=== PATIENT | male | born 1975 | race Caucasian/White ===

== ENCOUNTER 2017-12-31 20:05 | Emergency (ER) | payer SELFPAY ==
[2017-12-31 20:08] VITALS: BP 124/81; PULSE 105; RESP 22; TEMP 36.6; O2SAT 100; BMI 28.7
--- NOTE | 2017-12-31 20:30 | DI.CT.S_ITS ---
PROCEDURE: CT HEAD/BRAIN WO CON INDICATIONS: s/p syncope vs seizure w/ head trauma TECHNIQUE: Noncontrast 4.5 mm thick angled axial sections acquired from the foramen magnum to the vertex, with coronal and sagittal reformats. For radiation dose reduction, the following was used: automated exposure control, adjustment of mA and/or kV according to patient size. COMPARISON: None. FINDINGS: Image quality: Excellent. CSF spaces: Basal cisterns are patent. No extra-axial fluid collections. Ventricles are normal in size and shape. Brain: No midline shift. No intracranial masses or hemorrhage. Tobar-white matter interface is normal. 9 mm hypodensity seen in the region of left basal ganglia presumably chronic lacunar infarct, technically nonspecific Skull and face: Calvarium and visualized facial bones are intact, without suspicious lesions. Sinuses: Visualized sinuses and mastoids are clear. IMPRESSION: No acute intracranial process. Presumed chronic lacunar infarct involving the left basal ganglia. Dictated by: Swapnil Carlson M.D. on 12/31/2017 at 21:30 Approved by: Swapnil Carlson M.D. on 12/31/2017 at 21:32
--- NOTE | 2017-12-31 20:30 | DI.RAD.S_ITS ---
PROCEDURE: XR CHEST 1V INDICATIONS: syncope TECHNIQUE: One view of the chest was acquired. COMPARISON: None. FINDINGS: Surgical changes and devices: None. Lungs and pleura: No pleural effusions or pneumothorax. Lungs are clear. Low lung volumes and scattered atelectasis Mediastinum: Mediastinal contours appear normal. Heart size is normal. Bones and chest wall: No suspicious bony lesions. Overlying soft tissues appear unremarkable. IMPRESSION: Low lung volumes and scattered atelectasis. Dictated by: Swapnil Carlson M.D. on 12/31/2017 at 21:30 Approved by: Swapnil Carlson M.D. on 12/31/2017 at 21:30
[2017-12-31] MEDS: DIPHTH,PERTUSS(ACELL),TET VAC 0.5 ML SYRINGE IM (20:54)
[2017-12-31 21:10] LABS: Add Manual Diff / Slide Review NO; Basophils Percent Auto 0.9 % (0-2); Eosinophils Percent Auto 3.2 % (2-4); Hematocrit 37.4 % (41-53); Hemoglobin 12.5 g/dL (13.5-17.5); Lymphocytes Percent Auto 25.6 % (25-40); Mean Corpuscular HGB Conc 33.6 % (30-36); Mean Corpuscular Hemoglobin 29.1 PG (26-34); Mean Corpuscular Volume 86.6 fL (80-100); Monocytes Percent Auto 8.7 % (3-14); Neutrophils Absolute Auto 3700 /uL (3000-5900); Neutrophils Percent Auto 61.6 % (50-75); Platelet Count 166 X10^3/uL (150-400); Red Blood Cell Count 4.31 X10^6/uL (4.5-5.9); Red Cell Distribution Width 12.7 % (11.6-14.8)
[2017-12-31 21:21] LABS: BUN Creatinine Ratio 24.4 (6-22); Blood Urea Nitrogen 22 mg/dL (9-20); Calcium 9.5 mg/dL (8.4-10.2); Carbon Dioxide 32 mmol/L (22-32); Chloride 97 mmol/L (98-107); Estimated Glomerular Filt Rate > 60.0 mL/min (>60); Glucose 115 mg/dL (70-100); HEMOLYSIS < 15 (0-50); Potassium 3.8 mmol/L (3.4-5.1); Sodium 140 mmol/L (137-145)
[2017-12-31 22:14] VITALS: BP 133/86; PULSE 80; RESP 20; O2SAT 100
--- NOTE | 2017-12-31 22:17 | ED_ITS ---
HPI - Medical Clearance General Chief complaint: Medical Clearance Stated complaint: [facility] History of Present Illness HPI Narrative: HPI 42-year-old male with a reported seizure history (unmedicated) and ongoing IVDU (heroin) presents for medical clearance after a brief LOC with fall, head straight, and right knee injury while the patient was in a police holding cell. Patient reports that he has no recollection of events but awoke with head pain and right knee pain after apparently falling well and holding cell. Patient reports similar prior episodes. Patient has had minimal medical evaluation these episodes but believes he is had seizures and is not taking medications. Patient denies chest pain, fevers, chills. * Denies chest pain, shortness of breath, double vision, neck pain, vertigo, headache, arm pain, arm paresthesias, arm numbness, or focal weakness or sensory at change now or the time of their event. * Denies recent chiropractic manipulation of their neck, neck trauma or strains. M/S/F/SocHx notable for: please see HPI; remainder reviewed with patient and in chart. ROS: Negative constitutional, eye, cardiovascular, pulmonary, GI, , MSK, skin , neurologic, psychiatric, endocrine unless noted in the HPI. Exam Gen: Pleasant, non-toxic appearing, resting comfortably. HEENT: approximately 3 cm diameter area of superficial abrasion posterior occiput, otherwise NC, AT, PEERL, EOMI. Resp: Clear to auscultation bilaterally with a normal work of breathing and no accessory muscle usage. Card: Regular rate and rhythm with no murmurs rubs or gallops, extremities are warm and well perfused, no JVD. GI: Nontender to palpation throughout all quadrants, nondistended : Deferred MSK: no visible deformities, strength and tone within normal limits, no tenderness to palpation or palpable abnormalities of the appendicular skeleton, shoulder girdle, chest, and pelvis with the exception of a 2.5 cm long irregularly shaped curvilinear full-thickness laceration inferior and lateral to the right patella. Right knee with a negative Fartun and posterior drawer, no joint line tenderness palpation. 2+ distal DP pulse. Remainder of extremities warm and well perfused with sensation grossly intact to touch on the extremities. Skin: Normal color with no visible lesions. Neuro: Gen AO x 3, no facial asymmetry, no gaze preference, no slurring of speech. Pupils equal and reactive, EOMI, no facial asymmetry, no nystagmus, phonation intact, SCM 5/5 bilaterally. Cerebellar: bilateral upper extremities without dysmetria. Psych: Mood and affect appropriate. Labs / Imaging (pertinent): WBC 6.0, HB 12.5, sodium 140, potassium 3.8 CT head: no acute intracranial disease process. Presume chronic lacunar infarcts involving the left basal ganglia. CXR: low lung volumes and scattered atelectasis. EKG: SR at [address]-segment elevations or depressions, T-wave inversions or new LBBB. RI interval 206 msec, QTc 368 msec, no delta waves, epsilon waves, coved or saddle ST-segment changes in leads V1-3, preseptal or inferior lead Q-waves, biphasic P-waves, or T-wave inversions; no LVH. MDM Previous chart, nursing note, and vitals reviewed. A: 42-year-old male with a reported seizure history (unmedicated) and ongoing IVDU (heroin) presents for medical clearance after a brief LOC with fall, head straight, and right knee injury while the patient was in a police holding cell. DDx and evaluation: * Anemia - Hemoglobin clinically within normal limits. * Cardiac - EKG and history without evidence of AV-block, WPW syndrome, Brugada syndrome, HCM, Long or Short QT-syndrome, or arrhythmogenic RV dysplasia. Heart sounds WNL on exam, no evidence of valvular abnormalities by history or auscultation. History not consistent with ACS. * Obstructive - Doubt PE, tamponade, or pulmonary hypertension based upon lack of shortness of breath, chest pain, or historical risk factors on history and the absence of hypoxemia, tachycardia, hypotension, or JVD on exam. * Vascular - As there are no identifiable risk factors on history (injury risk factors, vertiginous symptoms, diplopia, vision changes, TIA risk factors or prior similar events) further evaluation of a possible vertebrobasilar insufficiency. Furthermore, as the patient denies neck pain, recent neck trauma , and there is no evidence of a partial Hany's syndrome, a carotid or vertebral dissection is felt to be unlikely and imaging is not indicated. Similarly, the absence of focal arm symptoms and symmetric perfusion of the upper extremities effectively excludes emergent evaluation of any possible subclavian steal syndrome. Lastly, given the absence of chest pain aortic dissection further evaluation of any possible dissection is not warranted. * Electrolyte - Electrolytes clinically within normal limits. * Hypotension (hypovolemia vs vasovagal vs autonomic instability) - SBP clinically within normal limits, no symptomatic changes with orthostatic maneuvers. 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 * AAA - patient without any abdominal, groin, back or flank pain on history or exam, as such no further evaluation of this possible etiology is currently indicated. * SEIZURE - GIVEN THE PATIENT'S HISTORY OF RECURRENT SIMILAR EPISODES (ONE WITH A PERIOD OF POST ICTAL PARALYSIS WHICH RESOLVED) AND PRIOR TENTATIVE DIAGNOSIS OF SEIZURES MEDICATION NONCOMPLIANCE WELL TODAY'S HISTORY OF SUDDEN LOC WITH AMNESIA STRONGLY SUSPECT SEIZURE. PATIENT GIVEN ORAL KEPPRA LOAD, DISCHARGE WITH RX FOR KEPPRA 500 MG B.I.D AND INSTRUCTIONS TO FOLLOW UP WITH NEUROLOGY. ED Course: laceration repair as below. Tdap booster given. Disposition: discharged with neurology follow-up recommended. Keppra prescription given. Impression: syncope, laceration, and suspected seizure. (please reference below for remainder of encounter information) Laceration Repair Verbal consent obtained. Wound cleaned with 500 ML sterile saline. Local infiltration of 6 mL of 2% lidocaine with epinephrine was used for anesthesia. Minimal debriding of tissue required. No foreign bodies removed, entirety of wound well visualized with no remaining foreign bodies appreciated. Using a clean procedure the wound was repaired with 3 3-0 nylon vertical mattress and 2-2 nylon simple interrupted sutures. No undermining required, patient tolerated the procedure well without apparent complications. Allergies Allergy/AdvReac Type Severity Reaction Status Date / Time No Known Drug Allergies Allergy Verified 12/31/17 20:36 Exam Initial Vital Signs Initial Vital Signs: Vital Signs Temperature 97.8 F 12/31/17 20:08 Pulse Rate 105 H 12/31/17 20:08 Respiratory Rate 22 12/31/17 20:08 Blood Pressure 124/81 H 12/31/17 20:08 Pulse Oximetry 100 12/31/17 20:08 Course Last Vital Signs Temp 97.8 F 12/31/17 20:08 Pulse 80 12/31/17 22:14 Resp 20 12/31/17 22:14 BP 133/86 H 12/31/17 22:14 Pulse Ox 100 12/31/17 22:14 MDM - Medical Clearance Lab Data Result diagrams: 12/31/17 21:00 12/31/17 21:00 Lab Results 12/31/17 12/31/17 Range/Units 21:00 21:00 WBC 6.0 (4.5-11.0) X10^3/uL RBC 4.31 L (4.5-5.9) X10^6/uL Hgb 12.5 L (13.5-17.5) g/dL Hct 37.4 L (41-53) % MCV 86.6 (80-100) fL MCH 29.1 (26-34) PG MCHC 33.6 (30-36) % RDW 12.7 (11.6-14.8) % Plt Count 166 (150-400) X10^3/uL Neut % (Auto) 61.6 (50-75) % Lymph % (Auto) 25.6 (25-40) % Anson % (Auto) 8.7 (3-14) % Eos % (Auto) 3.2 (2-4) % Baso % (Auto) 0.9 (0-2) % Neut # (Auto) 3700 (9237-8461) /uL Sodium 140 (137-145) mmol/L Potassium 3.8 (3.4-5.1) mmol/L Chloride 97 L (98-107) mmol/L Carbon Dioxide 32 (22-32) mmol/L BUN 22 H (9-20) mg/dL Creatinine 0.90 (0.66-1.25) mg/dL Estimated GFR > 60.0 (>60) mL/min BUN/Creatinine Ratio 24.4 H (6-22) Glucose 115 H (70-100) mg/dL Calcium 9.5 (8.4-10.2) mg/dL
[2017-12-31] MEDS: levETIRAcetam 250 MG TABLET 1500 MG PO (22:57)
== END 2017-12-31 23:07 | disposition home or self-care (01) ==
PROVIDERS: Emergency Provider Emergency Medicine
DX: S81.011A Laceration without foreign body, right knee, initial encounter (principal); R55 Syncope and collapse; W19.XXXA Unspecified fall, initial encounter
CPT/HCPCS: 12001; 36415; 70450; 71045; 80048; 85025; 90471; 90715; 93005; 99283; 99285; 99291

== ENCOUNTER 2021-11-02 21:28 | Inpatient (IN) | payer SELFPAY ==
[2021-11-02] VITALS (7 sets, daily range): BP systolic 115–138; BP diastolic 58–76; PULSE 115–127; RESP 22; TEMP 37; O2SAT 96–98; BMI 31.5
--- NOTE | 2021-11-02 21:47 | ED_ITS ---
HPI - General Adult General Chief complaint: Skin/Abscess/Foreign Body Stated complaint: left lower leg red, swollen, painful Time Seen by Provider: 11/02/21 21:43 Source: patient Mode of arrival: Ambulatory Limitations: no limitations History of Present Illness HPI narrative: 46-year-old male who is here for evaluation of red swollen painful left lower extremity. His symptoms have been perc is low worsening over the past couple days. He states that a couple days ago he did hit his knee on a tree while riding on a riding lawn lower but he is unsure if that is what caused his symptoms but since then he has had progressive worsening pain and swelling and redness to the leg. No documented fevers. Has not tried anything for the symptoms prior to arrival. Has never had an abscess in the past that is needed drained. He does admit to IV drug use but denies injecting himself in his leg. Related Data Previous Rx's Medication Instructions Recorded levetiracetam 500 mg tablet 500 mg PO Q12H #30 tab 12/31/17 (K[facility]athira) Allergies Allergy/AdvReac Type Severity Reaction Status Date / Time No Known Drug Allergies Allergy Verified 12/31/17 20:36 Review of Systems Constitutional Constitutional: Denies fever(s) Musculoskeletal Musculoskeletal: Reports system reviewed and no additional complaints, except as documented and Reports as per HPI Integumentary/Breasts Skin/Breast: Reports system reviewed and no additional complaints, except as documented and Reports as per HPI Neurologic Neurologic: Reports system reviewed and no additional complaints, except as documented Hematologic/Lymphatic On Anticoagulants: No Patient History Medical History Atypical chest pain CVA (cerebral vascular accident) Elevated liver enzymes IV drug abuse Social History household members: friend(s) Smoking Status: Current every day smoker Exam Initial Vital Signs Initial Vital Signs: Vital Signs Temperature 98.6 F 11/02/21 21:46 Pulse Rate 125 H 11/02/21 21:46 Respiratory Rate 22 11/02/21 21:46 Blood Pressure 134/73 11/02/21 21:46 Pulse Oximetry 98 11/02/21 21:46 Const General: comfortable and No ill appearing HENMT Head: normal to inspection and normocephalic Resp Effort & Inspection: normal respiratory effort Auscultation: clear to auscultation bilaterally Cardio Rate: regular rate Rhythm: regular rhythm Pulses: dorsalis pedis present on the left Skin Other: Redness and warmth to left lower extremity from his ankle to proximal to the knee. No blisters noted. There is an effusion of the knee but no fluctuance consistent with abscess. Neuro Sensory Exam: no sensory deficits noted Extrem Other: His left foot left ankle unremarkable. Does have swelling to his left lower extremity from his ankle to above his left knee. Patient does have quite a bit of discomfort with flexion or extension of his left knee. He is holding it in approximately 20? of flexion. He does have an effusion of the knee. Is exquisitely tender just to superficial palpation of the area. His left hip is unremarkable. Psych Appearance: grossly normal Course Orders Ordered: ED Orders 11/02/21 21:48 XR knee LT 1to2V Stat 11/02/21 21:50 US periph venous low extrem lt Stat 11/02/21 22:39 COVID19 -Nasal RAPID/Pre-Proc Stat 11/02/21 23:10 Blood Culture Stat C-Reactive Protein Quant Stat Complete Blood Count AUTO DIFF Stat Comprehensive Metabolic Panel Stat Erythrocyte Sedimentation Rate Stat Lactate (Lactic Acid) Stat Lipase Stat Procalcitonin Stat 11/03/21 01:29 Consult to Orthopedic Surgery Stat 11/03/21 01:50 Urinalysis and Microscopic Stat Urine Culture Stat Urine Drug Screen, Rapid Stat Acetaminophen (Acetaminophen 325 Mg Tablet) 650 mg PO Q6HR PRN PRN Reason: Fever/Mild Pain (1-3) Enoxaparin Sodium (Enoxaparin 40 Mg/0.4 Ml Syringe) 40 mg SUBCUT DAILY [facility] Sodium Chloride (Normal Saline 0.9%) 1,000 mls @ 125 mls/hr IV CONT MADHU Last Admin: 11/02/21 22:27 Dose: 125 mls/hr Documented by: RADHA Ceftriaxone Sodium 1,000 mg/ (Sodium Chloride) 100 mls @ 200 mls/hr IV Q24H [facility] Ibuprofen (Ibuprofen 600 Mg Tablet) 600 mg PO Q6HR PRN PRN Reason: Fever/Mild Pain (1-3) Ketorolac Tromethamine (Ketorolac 30 Mg/Ml Vial) 15 mg IV Q6H PRN PRN Reason: Pain, Moderate (4-6) Stop: 11/06/21 02:44 Levetiracetam (Levetiracetam 250 Mg Tablet) 500 mg PO BID MADHU Morphine Sulfate (Morphine 2 Mg/Ml Inj) 2 mg IV Q3H PRN PRN Reason: Breakthrough pain only (8-10) Naloxone HCl (Naloxone 0.4 Mg/Ml Vial) 0.2 mg IV Q2MIN PRN PRN Reason: Opiate Reversal Ondansetron HCl (Ondansetron 4 Mg/2 Ml Inj) 4 mg IV Q6HR PRN PRN Reason: Nausea And Vomiting Oxycodone HCl (Oxycodone Ir 5 Mg Tablet) 5 mg PO Q4HR PRN PRN Reason: Pain, Severe (7-10) Tramadol HCl (Tramadol 50 Mg Tablet) 50 mg PO Q4H PRN PRN Reason: Pain, Moderate (4-6) Discontinued Medications Diphtheria/Tetanus/Acell Pertussis (Tet,Diph,Pertuss(Acell),Vac/Pf 0.5 Ml Syringe) 0.5 ml IM .ONCE ONE Stop: 11/02/21 23:00 Last Admin: 11/02/21 23:11 Dose: 0.5 ml Documented by: RADHA Ceftriaxone Sodium 1,000 mg/ (Sodium Chloride) 100 mls @ 200 mls/hr IV NOW ONE Stop: 11/02/21 21:49 Last Infusion: 11/02/21 23:59 Dose: 0 mls/hr Documented by: Admin: 11/02/21 23:23 Dose: 200 mls/hr Documented by: RADHA Vancomycin HCl (Vancomycin) 1,000 mg in 200 mls @ 200 mls/hr IV NOW ONE Stop: 11/02/21 22:47 Last Infusion: 11/03/21 01:24 Dose: 0 mls/hr Documented by: Admin: 11/02/21 23:59 Dose: 200 mls/hr Documented by: TYRONE Vital Signs Vital signs: Vital Signs - 8 hr 11/02/21 21:46 11/02/21 21:53 11/02/21 22:00 Temperature 98.6 F Pulse Rate 125 H 125 H 127 H Respiratory Rate 22 Blood Pressure 134/73 Pulse Oximetry 98 98 96 11/02/21 22:30 11/02/21 22:57 11/02/21 23:00 Temperature Pulse Rate 115 H 118 H 120 H Respiratory Rate Blood Pressure 138/76 131/76 Pulse Oximetry 97 98 97 11/02/21 23:30 11/03/21 00:00 11/03/21 00:01 Temperature Pulse Rate 116 H Respiratory Rate Blood Pressure 115/58 L 105/69 Pulse Oximetry 96 98 11/03/21 00:30 Temperature Pulse Rate 117 H Respiratory Rate Blood Pressure 104/55 L Pulse Oximetry 96 Medical Decision Making Lab Data Lab results reviewed: Yes I reviewed the patient's lab results. Result diagrams: 11/02/21 23:10 11/02/21 23:10 Labs: Lab Results 11/02/21 11/02/21 11/02/21 Range/Units 22:39 23:10 23:10 WBC 12.8 H (4.5-11.0) X10^3/uL RBC 4.44 L (4.5-5.9) X10^6/uL Hgb 12.9 L (13.5-17.5) g/dL Hct 37.6 L (41-53) % MCV 84.6 (80-100) fL MCH 29.0 (26-34) PG MCHC 34.3 (30-36) % RDW 13.3 (11.6-14.8) % Plt Count 154 (150-400) X10^3/uL Neut % (Auto) 84.9 H (50-75) % Lymph % (Auto) 7.7 L (25-40) % [place] % (Auto) 5.0 (3-14) % Eos % (Auto) 2.2 (2-4) % Baso % (Auto) 0.2 (0-2) % Neut # (Auto) 49739 H (6280-0793) /uL Lymph # (Auto) 1000 L (7067-4013) /uL [place] # (Auto) 600 (0-900) /uL Eos # (Auto) 300 (0-450) /uL Baso # (Auto) 0 (0-100) /uL ESR (0-15) MM/HR Sodium 130 L (137-145) mmol/L Potassium 3.6 (3.4-5.1) mmol/L Chloride 90 L (98-107) mmol/L Carbon Dioxide 31 (22-32) mmol/L BUN 14 (9-20) mg/dL Creatinine 1.16 (0.66-1.25) mg/dL Estimated GFR > 60 (>60) mL/min BUN/Creatinine Ratio 12.1 (6-22) Glucose 153 H (70-100) mg/dL Lactate (0.7-2.1) mmol/L Calcium 8.5 (8.4-10.2) mg/dL Total Bilirubin 1.7 H (0.2-1.3) mg/dL AST 46 (17-59) IU/L ALT 91 H (<50) IU/L Alkaline Phosphatase 120 (38-126) U/L C-Reactive Protein 31.2 H (<1.0) mg/dL Total Protein 7.9 (6.3-8.2) g/dL Albumin 3.8 (3.5-5.0) g/dL Globulin 4.1 (1.7-4.1) g/dL Albumin/Globulin Ratio 0.9 L (1.0-2.8) Lipase 23 (23-300) U/L Procalcitonin 2.25 H (<0.5) ng/mL Urine Color Urine Appearance Urine pH (4.5-8.0) Ur Specific [place] (1.000-1.035) Urine Protein (Negative) Urine Glucose (UA) (Negative) g/dL Urine Ketones (NEGATIVE) Urine Occult Blood (Negative) Urine Nitrate (Negative) Urine Bilirubin (NEGATIVE) Urine Urobilinogen (0.2) E.U./dL Ur Leukocyte Esterase (NEGATIVE) Urine RBC (0-5/HPF) Urine WBC (0-5/HPF) Urine Bacteria (None) Ur Culture Indicated? U Opiates 300ng/mL cut (Negative) Ur Oxycodone Screen (Negative) Urine Methadone Screen (Negative) Ur Barbiturates Screen (Negative) U Tricyclic Antidepress (Negative) Ur Phencyclidine Scrn (Negative) Ur Amphetamines Screen (Negative) U Methamphetamines Scrn (Negative) Ur MDMA Scrn (Ecstasy) (Negative) U Benzodiazepines Scrn (Negative) Urine Cocaine Screen (Negative) U Marijuana (THC) Screen (Negative) SARS-CoV-2 (PCR) Negative (Negative) 11/02/21 11/02/21 11/03/21 Range/Units 23:10 23:10 01:50 WBC (4.5-11.0) X10^3/uL RBC (4.5-5.9) X10^6/uL Hgb (13.5-17.5) g/dL Hct (41-53) % MCV (80-100) fL MCH (26-34) PG MCHC (30-36) % RDW (11.6-14.8) % Plt Count (150-400) X10^3/uL Neut % (Auto) (50-75) % Lymph % (Auto) (25-40) % [place] % (Auto) (3-14) % Eos % (Auto) (2-4) % Baso % (Auto) (0-2) % Neut # (Auto) (1098-0483) /uL Lymph # (Auto) (2832-5830) /uL [place] # (Auto) (0-900) /uL Eos # (Auto) (0-450) /uL Baso # (Auto) (0-100) /uL ESR 49 H (0-15) MM/HR Sodium (137-145) mmol/L Potassium (3.4-5.1) mmol/L Chloride (98-107) mmol/L Carbon Dioxide (22-32) mmol/L BUN (9-20) mg/dL Creatinine (0.66-1.25) mg/dL Estimated GFR (>60) mL/min BUN/Creatinine Ratio (6-22) Glucose (70-100) mg/dL Lactate 1.9 (0.7-2.1) mmol/L Calcium (8.4-10.2) mg/dL Total Bilirubin (0.2-1.3) mg/dL AST (17-59) IU/L ALT (<50) IU/L Alkaline Phosphatase (38-126) U/L C-Reactive Protein (<1.0) mg/dL Total Protein (6.3-8.2) g/dL Albumin (3.5-5.0) g/dL Globulin (1.7-4.1) g/dL Albumin/Globulin Ratio (1.0-2.8) Lipase (23-300) U/L Procalcitonin (<0.5) ng/mL Urine Color Urine Appearance Urine pH (4.5-8.0) Ur Specific [place] (1.000-1.035) Urine Protein (Negative) Urine Glucose (UA) (Negative) g/dL Urine Ketones (NEGATIVE) Urine Occult Blood (Negative) Urine Nitrate (Negative) Urine Bilirubin (NEGATIVE) Urine Urobilinogen (0.2) E.U./dL Ur Leukocyte Esterase (NEGATIVE) Urine RBC (0-5/HPF) Urine WBC (0-5/HPF) Urine Bacteria (None) Ur Culture Indicated? U Opiates 300ng/mL cut Positive H (Negative) Ur Oxycodone Screen Negative (Negative) Urine Methadone Screen Negative (Negative) Ur Barbiturates Screen Negative (Negative) U Tricyclic Antidepress Negative (Negative) Ur Phencyclidine Scrn Negative (Negative) Ur Amphetamines Screen Positive H (Negative) U Methamphetamines Scrn Positive H (Negative) Ur MDMA Scrn (Ecstasy) Negative (Negative) U Benzodiazepines Scrn Negative (Negative) Urine Cocaine Screen Negative (Negative) U Marijuana (THC) Screen Negative (Negative) SARS-CoV-2 (PCR) (Negative) 11/03/21 Range/Units 01:50 WBC (4.5-11.0) X10^3/uL RBC (4.5-5.9) X10^6/uL Hgb (13.5-17.5) g/dL Hct (41-53) % MCV (80-100) fL MCH (26-34) PG MCHC (30-36) % RDW (11.6-14.8) % Plt Count (150-400) X10^3/uL Neut % (Auto) (50-75) % Lymph % (Auto) (25-40) % [place] % (Auto) (3-14) % Eos % (Auto) (2-4) % Baso % (Auto) (0-2) % Neut # (Auto) (7286-5299) /uL Lymph # (Auto) (3611-2959) /uL [place] # (Auto) (0-900) /uL Eos # (Auto) (0-450) /uL Baso # (Auto) (0-100) /uL ESR (0-15) MM/HR Sodium (137-145) mmol/L Potassium (3.4-5.1) mmol/L Chloride (98-107) mmol/L Carbon Dioxide (22-32) mmol/L BUN (9-20) mg/dL Creatinine (0.66-1.25) mg/dL Estimated GFR (>60) mL/min BUN/Creatinine Ratio (6-22) Glucose (70-100) mg/dL Lactate (0.7-2.1) mmol/L Calcium (8.4-10.2) mg/dL Total Bilirubin (0.2-1.3) mg/dL AST (17-59) IU/L ALT (<50) IU/L Alkaline Phosphatase (38-126) U/L C-Reactive Protein (<1.0) mg/dL Total Protein (6.3-8.2) g/dL Albumin (3.5-5.0) g/dL Globulin (1.7-4.1) g/dL Albumin/Globulin Ratio (1.0-2.8) Lipase (23-300) U/L Procalcitonin (<0.5) ng/mL Urine Color Yellow Urine Appearance Clear Urine pH 6.5 (4.5-8.0) Ur Specific [place] 1.015 (1.000-1.035) Urine Protein 2+ H (Negative) Urine Glucose (UA) Trace H (Negative) g/dL Urine Ketones Negative (NEGATIVE) Urine Occult Blood 1+ H (Negative) Urine Nitrate Negative (Negative) Urine Bilirubin Negative (NEGATIVE) Urine Urobilinogen 1.0 (0.2) E.U./dL Ur Leukocyte Esterase Negative (NEGATIVE) Urine RBC None seen (0-5/HPF) Urine WBC None seen (0-5/HPF) Urine Bacteria None seen (None) Ur Culture Indicated? Culture not indicate U Opiates 300ng/mL cut (Negative) Ur Oxycodone Screen (Negative) Urine Methadone Screen (Negative) Ur Barbiturates Screen (Negative) U Tricyclic Antidepress (Negative) Ur Phencyclidine Scrn (Negative) Ur Amphetamines Screen (Negative) U Methamphetamines Scrn (Negative) Ur MDMA Scrn (Ecstasy) (Negative) U Benzodiazepines Scrn (Negative) Urine Cocaine Screen (Negative) U Marijuana (THC) Screen (Negative) SARS-CoV-2 (PCR) (Negative) Imaging Data Extremity x-ray #1: Radiologist's Impression: [address] [address] XRay Report Signed Patient: Ezequiel Estevez MR#: [id number] : 1975 Acct:[id number] Age/Sex: 46 / M Date of Service: 11/02/21 Loc: ED Accession Number: [id number] ?? Procedure: XR knee LT 1to2V Ordering Provider: Lj Gudino D.O. PROCEDURE:? XR KNEE LT 1TO2V ? INDICATIONS:? pain and swelling ? TECHNIQUE:? 2 views of the knee were acquired.? ? COMPARISON:? None. ? FINDINGS:? ? Bones:? No fractures or dislocations.? No suspicious bony lesions.? ? Soft tissues:? No joint effusion.? There is prepatellar soft tissue swelling.? No suspicious soft tissue calcifications.? ? ? IMPRESSION:? ? 1. No fracture or dislocation. ? 2. Prepatellar soft tissue swelling. ? ? Dictated by: Efren Barber M.D. on 11/03/2021 at 0:11 ? ? Approved by: Efren Barber M.D. on 11/03/2021 at 0:11?? US - DVT: Radiologist's Impression: [place] [address] Ultrasound Report Signed Patient: Ezequiel Estevez MR#: [id number] : 1975 Acct:[id number] Age/Sex: 46 / M Date of Service: 11/02/21 Loc: ED Accession Number: [id number] ?? Procedure: US periph venous low extrem lt Ordering Provider: Lj Gudino D.O. PROCEDURE:? US PERIPH VENOUS LOW EXTREM LT ? INDICATIONS:? LT LEG PAIN AND SWELLING ? TECHNIQUE:? Real-time imaging, as well as color and pulse Doppler interrogation, were performed of the lower extremity deep veins from the inguinal ligament to the popliteal fossa.? ? COMPARISON:? None. ? FINDINGS:? The common femoral, femoral and popliteal veins are normally compressible, and free of intraluminal thrombus.? Color and pulse Doppler demonstrate normal phasic intraluminal flow.? There is normal augmentation response to distal compression maneuver. ? ? There are enlarged lymph nodes within the left inguinal region, with the largest measuring up to 2.9 x 2.3 x 2.5 cm. ? IMPRESSION:? ? 1. No evidence of deep venous thrombosis in the left lower extremity. ? Enlarged left inguinal lymph nodes are nonspecific.? The findings may be reactive but a neoplastic etiology cannot be excluded.? ? Dictated by: Efren Barber M.D. on 11/03/2021 at 0:13 ? ? Approved by: Efren Barber M.D. on 11/03/2021 at 0:14?? [facility] Narrative Medical decision making narrative: Patient with obvious cellulitis of his left lower extremity. There is no fluctuance felt in the area that would make me concerned about abscess. He has multiple small wounds on his legs anyone of which could potentially been the source of the infection. No DVT noted on the ultrasound. No fractures noted on the x-rays. Nursing staff has difficult time obtaining IV access given his IV drug abuse however we were able to obtain a IV and were able to start anti biotics. Only 1 blood culture was obtained. Patient was not tachycardic. Not hypotensive so 30 cc/kilogram of fluid was not administered secondary to this. Patient also not altered. Also has a normal lactate. Did consider a septic joint and septic bursitis. He does have an elevated ESR and CRP. I am not comfortable doing a an arthrocentesis given the cellulitis overlying the area. I would not be surprised if he does have a septic bursitis. There is no indication for any incision and drainage here in the emergency department. I did discuss the case with Dr. Amezquita with orthopedic surgery who stated she would see the patient as an inpatient. I discussed the case with G[facility]MAN [facility] provider who will admit for further evaluation treatment. I did discuss the need for admission with the patient who expressed understanding and agreement. Discharge Plan Departure Patient Disposition: Admitted As Inpatient Clinical Impression: Cellulitis Admit Date/Time: 11/03/21 02:25 Admit Provider: Kalina Carlson
--- NOTE | 2021-11-02 21:48 | DI.RAD.S_ITS ---
PROCEDURE: XR KNEE LT 1TO2V INDICATIONS: pain and swelling TECHNIQUE: 2 views of the knee were acquired. COMPARISON: None. FINDINGS: Bones: No fractures or dislocations. No suspicious bony lesions. Soft tissues: No joint effusion. There is prepatellar soft tissue swelling. No suspicious soft tissue calcifications. IMPRESSION: 1. No fracture or dislocation. 2. Prepatellar soft tissue swelling. Dictated by: Efren Barber M.D. on 11/03/2021 at 0:11 Approved by: Efren Barber M.D. on 11/03/2021 at 0:11
--- NOTE | 2021-11-02 21:50 | DI.US.S_ITS ---
PROCEDURE: US PERIPH VENOUS LOW EXTREM LT INDICATIONS: LT LEG PAIN AND SWELLING TECHNIQUE: Real-time imaging, as well as color and pulse Doppler interrogation, were performed of the lower extremity deep veins from the inguinal ligament to the popliteal fossa. COMPARISON: None. FINDINGS: The common femoral, femoral and popliteal veins are normally compressible, and free of intraluminal thrombus. Color and pulse Doppler demonstrate normal phasic intraluminal flow. There is normal augmentation response to distal compression maneuver. There are enlarged lymph nodes within the left inguinal region, with the largest measuring up to 2.9 x 2.3 x 2.5 cm. IMPRESSION: 1. No evidence of deep venous thrombosis in the left lower extremity. Enlarged left inguinal lymph nodes are nonspecific. The findings may be reactive but a neoplastic etiology cannot be excluded. Dictated by: Efren Barber M.D. on 11/03/2021 at 0:13 Approved by: Efren Barber M.D. on 11/03/2021 at 0:14
[2021-11-02] MEDS: SODIUM CHLORIDE 0.9% 1,000 ML 125 ML IV (22:27)
--- NOTE | 2021-11-02 22:41 | PC.NURSE ---
Pt is difficult stick with multiple attempts by x3 RN, reports IV drug use. Charted IV obtained, unable to collect ordered blood. Lab called for attempt. Dr Gudino notified and orders received if lab unable to draw blood, antibiotics to be started without. Offsite PICC/Midline team called and state they are available in the morning.
--- NOTE | 2021-11-02 22:50 | PC.NURSE ---
Pt reports I smashed my knee into a tree 3 days ago. He reports horrific pressure in his left leg that is an 8/10 pain. His left leg is warm to the touch, swollen and red.
[2021-11-02 23:08] LABS: COVID19 -Nasal RAPID Negative (Negative)
[2021-11-02] MEDS: TET,DIPH,PERTUSS(ACELL),VAC/PF 0.5 ML SYRINGE IM (23:11)
[2021-11-02] MEDS: cefTRIAXone 1,000 MG in SODIUM CHLORIDE 0.9% 100 ML 200 ML IV (23:23)
--- NOTE | 2021-11-02 23:36 | PC.NURSE ---
Lab unable to obtain second set of cultures, Dr. Gudino aware, antibiotics started.
[2021-11-02 23:55] LABS: Erythrocyte Sedimentation Rate 49 MM/HR (0-15)
[2021-11-02 23:56] LABS: Add Manual Diff / Slide Review NO; Basophils Absolute Auto 0 /uL (0-100); Basophils Percent Auto 0.2 % (0-2); Eosinophils Absolute Auto 300 /uL (0-450); Eosinophils Percent Auto 2.2 % (2-4); Hematocrit 37.6 % (41-53); Hemoglobin 12.9 g/dL (13.5-17.5); Lymphocytes Absolute Auto 1000 /uL (1100-4500); Lymphocytes Percent Auto 7.7 % (25-40); Mean Corpuscular HGB Conc 34.3 % (30-36); Mean Corpuscular Volume 84.6 fL (80-100); Monocytes Absolute Auto 600 /uL (0-900); Neutrophils Absolute Auto 10900 /uL (1500-7000); Neutrophils Percent Auto 84.9 % (50-75); Platelet Count 154 X10^3/uL (150-400); Red Blood Cell Count 4.44 X10^6/uL (4.5-5.9); Red Cell Distribution Width 13.3 % (11.6-14.8); White Blood Cell Count 12.8 X10^3/uL (4.5-11.0)
[2021-11-02] MEDS: VANCOMYCIN 1,000 MG/200 ML PIGGYBACK 200 MG IV (23:59)
[2021-11-03] VITALS (7 sets, daily range): BP systolic 104–111; BP diastolic 55–69; PULSE 115–117; RESP 19; TEMP 38.2–38.3; O2SAT 96–98; BMI 31.4
[2021-11-03 00:04] LABS: Lactate (Lactic Acid) 1.9 mmol/L (0.7-2.1)
[2021-11-03 00:05] LABS: Alanine Aminotransferase 91 IU/L (<50); Albumin 3.8 g/dL (3.5-5.0); Albumin Globulin Ratio 0.9 (1.0-2.8); Alkaline Phosphatase 120 U/L (38-126); Aspartate Aminotransferase 46 IU/L (17-59); BUN Creatinine Ratio 12.1 (6-22); Bilirubin Total 1.7 mg/dL (0.2-1.3); Blood Urea Nitrogen 14 mg/dL (9-20); Calcium 8.5 mg/dL (8.4-10.2); Carbon Dioxide 31 mmol/L (22-32); Chloride 90 mmol/L (98-107); Estimated Glomerular Filt Rate > 60 mL/min (>60); Globulin 4.1 g/dL (1.7-4.1); Glucose 153 mg/dL (70-100); HEMOLYSIS < 15 (0-50); Lipase 23 U/L (23-300); Potassium 3.6 mmol/L (3.4-5.1); Sodium 130 mmol/L (137-145); Total Protein 7.9 g/dL (6.3-8.2)
[2021-11-03 00:21] LABS: Procalcitonin 2.25 ng/mL (<0.5)
[2021-11-03 01:20] LABS: C-Reactive Protein Quant 31.2 mg/dL (<1.0)
[2021-11-03 02:07] LABS: Appearance Urine UA CLEAR; Bilirubin Urine UA NEGATIVE (NEGATIVE); Color Urine UA YELLOW; Glucose Urine UA TRACE g/dL (Negative); Ketones Urine UA NEGATIVE (NEGATIVE); Leukocyte Esterase Urine UA NEGATIVE (NEGATIVE); Nitrite Urine UA NEGATIVE (Negative); Occult Blood Urine UA 1+ (Negative); Protein Urine UA 2+ (Negative); Specific Gravity Urine UA 1.015 (1.000-1.035); pH Urine UA 6.5 (4.5-8.0)
[2021-11-03 02:12] LABS: UR Morphine/Opiate cutoff 300 Positive (Negative); Ur Creatinine 20 (Normal); Ur Specific Gravity 1.015 (Normal); Urine Amphetamines Positive (Negative); Urine Cocaine Negative (Negative); Urine Methamphetamines Positive (Negative); Urine Tetrahydrocannabinol Negative (Negative); Urine pH 6.5 (Normal)
[2021-11-03 02:13] LABS: Urine Barbiturates Negative (Negative); Urine Benzodiazepines Negative (Negative); Urine MDMA Negative (Negative); Urine Methadone Negative (Negative); Urine Oxycodone Negative (Negative); Urine Phencyclidine Negative (Negative); Urine Tricyclic Antidepressant Negative (Negative)
[2021-11-03 02:20] LABS: Bacteria Urine None Seen; RBC Urine None Seen (0-5/HPF); WBC Urine None Seen (0-5/HPF)
[2021-11-03] MEDS: MORPHINE 2 MG/ML INJ IV (02:54)
[2021-11-03] MEDS: ACETAMINOPHEN 325 MG TABLET 650 MG PO (02:55)
--- NOTE | 2021-11-03 02:56 | DI.RAD.S_ITS ---
PROCEDURE: XR CHEST 1V INDICATIONS: bilateral lung rales concerning for pneumonia TECHNIQUE: One view of the chest was acquired. COMPARISON: [facility], CR, XR CHEST 1V, 12/31/2017, 20:11. FINDINGS: Surgical changes and devices: None. Lungs and pleura: Lungs are clear. No pleural effusions or pneumothorax. Mediastinum: Mediastinal contours appear normal. Heart size is normal. Bones and chest wall: No suspicious bony lesions. Overlying soft tissues appear unremarkable. IMPRESSION: No acute cardiopulmonary disease process. Dictated by: Catherine Lobato MD, PhD on 11/03/2021 at 7:49 Approved by: Catherine Lobato MD, PhD on 11/03/2021 at 7:49
--- NOTE | 2021-11-03 02:57 | P.HP_ITS ---
History of Present Illness History of Present Illness Date Patient Seen: 11/03/21 Time Patient Seen: 02:57 Chief complaint: left lower leg red, swollen, painful Narrative: Ezequiel Estevez is a 46-year-old male with a prior history of a seizure disorder and current IV drug use presented today after having hit a tree while riding a lawnmower. He states that the pain in his left leg started 3 days ago and then developed a fever. He told the emergency department provider that he had hit a tree branch while he was on the riding mower. He did have subjective fevers and chills but did not have any shortness of breath, chest pain, nausea or vomiting, dysuria head, diarrhea constipation. He apparently injects both heroin and methamphetamine. Doppler ultrasound of the left leg did not reveal a DVT, chest x-ray reading ordered on the medical floor is currently pending, he has a mildly elevated white count of 12.8 he is mildly anemic with a H&H of 12.9 and 37.6 respectively, he has a left shift with a neutrophil count of 10,900, his ESR is elevated at 49, sodium is 130, chloride 90, glucose is 153, CRP is 31.2, Patient History Medical History Atypical chest pain CVA (cerebral vascular accident) Elevated liver enzymes History of seizures IV drug abuse Family & Social History Social History: household members friend(s) Prior Living Arrangements House Safety & Behavioral: Feels Safe in Current Yes Environment Been Physically Hurt or No Threatened By a Person Tobacco & Substance use: Smoking Status Current every day smoker alcohol intake frequency holiday/special occasion Substance Use Type heroin Meds Home Medications and Allergies Home Medications Medication Instructions Recorded Confirmed Type levetiracetam 500 mg tablet 500 mg PO Q12H #30 tab 12/31/17 Rx (Keppra) Allergies Allergy/AdvReac Type Severity Reaction Status Date / Time No Known Drug Allergies Allergy Verified 12/31/17 20:36 Review of Systems Review of Systems ROS: Yes All systems reviewed with the patient and are negative except as otherwise documented Exam Vital Signs (past 8 hours): - 11/02/21 21:46 11/02/21 21:53 11/02/21 22:00 Temperature 98.6 F Pulse Rate 125 H 125 H 127 H Respiratory Rate 22 Blood Pressure 134/73 Pulse Oximetry 98 98 96 11/02/21 22:30 11/02/21 22:57 11/02/21 23:00 Temperature Pulse Rate 115 H 118 H 120 H Respiratory Rate Blood Pressure 138/76 131/76 Pulse Oximetry 97 98 97 11/02/21 23:30 11/03/21 00:00 11/03/21 00:01 Temperature Pulse Rate 116 H Respiratory Rate Blood Pressure 115/58 L 105/69 Pulse Oximetry 96 98 11/03/21 00:30 11/03/21 02:36 11/03/21 02:55 Temperature 100.8 F H 100.8 F H Pulse Rate 117 H 115 H Respiratory Rate 19 Blood Pressure 104/55 L 111/57 L Pulse Oximetry 96 97 Oxygen Delivery Method Room Air Oxygen Flow Rate 0 Narrative Exam Narrative: Gen: Alert, oriented, overweight and disheveled appearing 46 y.o. male, appears to be shivering HEENT: normocephalic, atraumatic, conjunctiva clear, sclera non-icteric, oral mucosa pink and moist Neck: supple, full ROM, no JVD, trachea is midline Resp: Bilateral rales, non-labored breathing CV: RRR, no murmur or rubs Abd: soft and obese, non-tender, normoactive BTs Skin: has extensive area of erythema on left lower leg excluding ankle and foot. Neuro: Alert and oriented X 4 w/no focal deficits. Speech clear and coherent. Extremities: moves all 4 extremities, is ambulatory, negative Ariana?s sign Psyche: normal mood and affect. Objective Labs Result Diagrams: 11/02/21 23:10 11/02/21 23:10 Labs: Laboratory Results - last 24 hr 11/02/21 11/02/21 11/02/21 22:39 23:10 23:10 WBC 12.8 H RBC 4.44 L Hgb 12.9 L Hct 37.6 L MCV 84.6 MCH 29.0 MCHC 34.3 RDW 13.3 Plt Count 154 Neut % (Auto) 84.9 H Lymph % (Auto) 7.7 L [place] % (Auto) 5.0 Eos % (Auto) 2.2 Baso % (Auto) 0.2 Neut # (Auto) 18890 H Lymph # (Auto) 1000 L [place] # (Auto) 600 Eos # (Auto) 300 Baso # (Auto) 0 ESR Sodium 130 L Potassium 3.6 Chloride 90 L Carbon Dioxide 31 BUN 14 Creatinine 1.16 Estimated GFR > 60 BUN/Creatinine Ratio 12.1 Glucose 153 H Lactate Calcium 8.5 Total Bilirubin 1.7 H AST 46 ALT 91 H Alkaline Phosphatase 120 C-Reactive Protein 31.2 H Total Protein 7.9 Albumin 3.8 Globulin 4.1 Albumin/Globulin Ratio 0.9 L Lipase 23 Procalcitonin 2.25 H Urine Color Urine Appearance Urine pH Ur Specific [place] Urine Protein Urine Glucose (UA) Urine Ketones Urine Occult Blood Urine Nitrate Urine Bilirubin Urine Urobilinogen Ur Leukocyte Esterase Urine RBC Urine WBC Urine Bacteria Ur Culture Indicated? U Opiates 300ng/mL cut Ur Oxycodone Screen Urine Methadone Screen Ur Barbiturates Screen U Tricyclic Antidepress Ur Phencyclidine Scrn Ur Amphetamines Screen U Methamphetamines Scrn Ur MDMA Scrn (Ecstasy) U Benzodiazepines Scrn Urine Cocaine Screen U Marijuana (THC) Screen SARS-CoV-2 (PCR) Negative 11/02/21 11/02/21 11/03/21 23:10 23:10 01:50 WBC RBC Hgb Hct MCV MCH MCHC RDW Plt Count Neut % (Auto) Lymph % (Auto) [place] % (Auto) Eos % (Auto) Baso % (Auto) Neut # (Auto) Lymph # (Auto) [place] # (Auto) Eos # (Auto) Baso # (Auto) ESR 49 H Sodium Potassium Chloride Carbon Dioxide BUN Creatinine Estimated GFR BUN/Creatinine Ratio Glucose Lactate 1.9 Calcium Total Bilirubin AST ALT Alkaline Phosphatase C-Reactive Protein Total Protein Albumin Globulin Albumin/Globulin Ratio Lipase Procalcitonin Urine Color Urine Appearance Urine pH Ur Specific [place] Urine Protein Urine Glucose (UA) Urine Ketones Urine Occult Blood Urine Nitrate Urine Bilirubin Urine Urobilinogen Ur Leukocyte Esterase Urine RBC Urine WBC Urine Bacteria Ur Culture Indicated? U Opiates 300ng/mL cut Positive H Ur Oxycodone Screen Negative Urine Methadone Screen Negative Ur Barbiturates Screen Negative U Tricyclic Antidepress Negative Ur Phencyclidine Scrn Negative Ur Amphetamines Screen Positive H U Methamphetamines Scrn Positive H Ur MDMA Scrn (Ecstasy) Negative U Benzodiazepines Scrn Negative Urine Cocaine Screen Negative U Marijuana (THC) Screen Negative SARS-CoV-2 (PCR) 11/03/21 01:50 WBC RBC Hgb Hct MCV MCH MCHC RDW Plt Count Neut % (Auto) Lymph % (Auto) [place] % (Auto) Eos % (Auto) Baso % (Auto) Neut # (Auto) Lymph # (Auto) [place] # (Auto) Eos # (Auto) Baso # (Auto) ESR Sodium Potassium Chloride Carbon Dioxide BUN Creatinine Estimated GFR BUN/Creatinine Ratio Glucose Lactate Calcium Total Bilirubin AST ALT Alkaline Phosphatase C-Reactive Protein Total Protein Albumin Globulin Albumin/Globulin Ratio Lipase Procalcitonin Urine Color Yellow Urine Appearance Clear Urine pH 6.5 Ur Specific [place] 1.015 Urine Protein 2+ H Urine Glucose (UA) Trace H Urine Ketones Negative Urine Occult Blood 1+ H Urine Nitrate Negative Urine Bilirubin Negative Urine Urobilinogen 1.0 Ur Leukocyte Esterase Negative Urine RBC None seen Urine WBC None seen Urine Bacteria None seen Ur Culture Indicated? Culture not indicate U Opiates 300ng/mL cut Ur Oxycodone Screen Urine Methadone Screen Ur Barbiturates Screen U Tricyclic Antidepress Ur Phencyclidine Scrn Ur Amphetamines Screen U Methamphetamines Scrn Ur MDMA Scrn (Ecstasy) U Benzodiazepines Scrn Urine Cocaine Screen U Marijuana (THC) Screen SARS-CoV-2 (PCR) Assessment & Plan Assessment & Plan narrative: Patient was to have received IV ceftriaxone, but has opted to leave AMA. COVID-19 COVID-19 status: Negative Result date/Date tested (Pos, Neg/Pending): 11/03/21 Scores Wells' Criteria for PE Clinical signs and symptoms of DVT: Yes PE is #1 Dx or equally likely: No Heart rate > 100: No Immobilization at least 3 days or surg in previous 4 weeks: No History of PE or DVT: No Hemoptysis: No Malignancy w/Treatment within 6 months or palliative: No Wells' PE Score total: 3 Quality VTE Deep Vein Thrombosis/Pulmonary Embolism Present on Admission: No MIPS - Admit The patient?s Advance Care plan is not present because I confirmed today that the patient does not wish or was not able to name a surrogate decision maker or provide an Advance Care Plan.: Yes MIPS - DC The patient has current or prior documentation of left ventricular ejection fraction (LVEF) less than 40%, or moderate or severely depressed left ventricular systolic function.: No
--- NOTE | 2021-11-03 03:33 | PC.NURSE ---
Addendum entered by Ellie Carlton R.N. 11/03/21 05:17: 0500- Patient put his call light on and requested to leave AMA. Patient is alert oriented and states he understands that he could be putting his life at risk if he doesn't stay for treatment of his infection. Patient advised that he may return and receive care if he chooses. Patient given AMA paperwork after discussion with GERMAN Carlson. Patient able to dress, stand and transfer to a wheelchair. Patient signed AMA paperwork, IV catheter removed prior to discharge. Patient given all his belongings at time of discharge. Original Note: 0330- Patient medicated for pain and then trousers removed. Patient has bright red erythemia to the left leg that tracks all the way to the groin. Patient states he has pain 8/10 with movement, 4 at rest. Patient is febrile. Medicated per order. Patient admits to using heroin yesterday in the AM. Patient reports using [id number]. Right leg has a lesion that is not open but is hard and suspicious for puncture site. Patient reports it is painful if touched. No exudate or open areas noted to either leg. Patient has a 22 g in the right hand. Picc RN notified for placement but cannot arrive until AM. Lungs are clear bibasilar, CXR obtained per order. Will monitor.
== END 2021-11-03 05:15 | disposition left against medical advice (07) | DRG 603 ==
LOC: ED 11-03 01:35 → AC 11-03 02:27 → ICU 11-07 10:00
PROVIDERS: Admitting Provider Nurse Practitioner Family; Emergency Provider Emergency Medicine; Referring Provider Emergency Medicine; Visit Provider Nurse Practitioner Family
DX: L03.116 Cellulitis of left lower limb (principal); F17.200 Nicotine dependence, unspecified, uncomplicated; Z20.822 Contact with and (suspected) exposure to COVID-19; Z23 Encounter for immunization; Z53.29 Procedure and treatment not carried out because of patient's decision for other reasons
CPT/HCPCS: 36415; 71045; 73560; 80053; 80305; 81001; 83605; 83690; 84145; 85025; 85651; 86140; 87040; 87086; 87635; 90471; 93971; 96365; 96367; 99284; C9803; 90715; J0696; J2270

== ENCOUNTER 2021-11-04 21:46 | Emergency (ER) | payer SELFPAY ==
[2021-11-03 02:35] VITALS: BMI 31.4
[2021-11-04 21:57] VITALS: BP 117/75; PULSE 112; RESP 18; TEMP 36.8; O2SAT 99; BMI 30.9
--- NOTE | 2021-11-04 21:59 | ED.GENADULT ---
HPI - General Adult General Chief complaint: Recheck/Abnormal Lab/Rx Stated complaint: left leg infection Time Seen by Provider: 11/04/21 21:53 Source: patient Mode of arrival: Ambulatory Limitations: no limitations History of Present Illness HPI narrative: Patient is a 46-year-old male who I evaluated in the emergency department just a couple days ago for a left lower extremity cellulitis. He was given IV antibiotics. Cultures were obtained. He was admitted to the hospital however shortly after being admitted he decided to leave against medical advice. He was not given any antibiotics upon leaving. He returns the emergency department today stating that the redness has continued potentially worsening. He has not had any fevers. The redness has not spread from the area were was a couple days ago just becoming more deep red. He states that the pain around his knee has actually improved somewhat as well. He states he has a tomorrow that he has to attend. He is here for antibiotics. Related Data Previous Rx's Medication Instructions Recorded levetiracetam 500 mg tablet 500 mg PO Q12H #30 tab 12/31/17 (Keppra) doxycycline hyclate 100 mg tablet 100 mg PO BID 10 Days #20 tab 11/04/21 Allergies Allergy/AdvReac Type Severity Reaction Status Date / Time No Known Drug Allergies Allergy Verified 12/31/17 20:36 Review of Systems Constitutional Comments: No fevers Musculoskeletal Musculoskeletal: Reports system reviewed and no additional complaints, except as documented and Reports as per HPI Integumentary/Breasts Skin/Breast: Reports system reviewed and no additional complaints, except as documented and Reports as per HPI Neurologic Neurologic: Reports system reviewed and no additional complaints, except as documented Hematologic/Lymphatic On Anticoagulants: No Patient History Medical History Atypical chest pain CVA (cerebral vascular accident) Elevated liver enzymes History of seizures IV drug abuse Social History household members: friend(s) Smoking Status: Current every day smoker Smoking Status: Current every day smoker tobacco type: cigarettes alcohol intake frequency: holidays/special occasions only Substance Use Type: heroin Exam Initial Vital Signs Initial Vital Signs: Vital Signs Temperature 98.2 F 11/04/21 21:57 Pulse Rate 112 H 11/04/21 21:57 Respiratory Rate 18 11/04/21 21:57 Blood Pressure 117/75 11/04/21 21:57 Pulse Oximetry 99 11/04/21 21:57 HENNV Head: normal to inspection and normocephalic Resp Effort & Inspection: normal respiratory effort Cardio Rate: tachycardic Pulses: dorsalis pedis present on the left Skin Other: Patient has an intense be read warm lower extremity from his left ankle to proximal to his knee. There are no vesicles. No pustules. No specific fluctuance noted. No drainage. Neuro General: patient alert, patient awake and patient oriented x3 Extrem Other: Redness and swelling left lower extremity. Does have a small left knee effusion however he is less tender to palpation over the knee today is what he was a couple days ago Course Orders Ordered: Discontinued Medications Doxycycline Hyclate (Doxycycline Hyclate 100 Mg Tablet) 100 mg PO NOW ONE Stop: 11/04/21 22:07 Last Admin: 11/04/21 22:12 Dose: 100 mg Documented by: LEON Vital Signs Vital signs: Vital Signs - 8 hr 11/04/21 21:57 Temperature 98.2 F Pulse Rate 112 H Respiratory Rate 18 Blood Pressure 117/75 Pulse Oximetry 99 Medical Decision Making [facility] Narrative Medical decision making narrative: Patient is afebrile. He is tachycardic. The redness in his left lower extremity is more beefy red than what was a couple days ago but does not appear to have spread any further. His left knee tenderness is actually improved and he is able to bend his left knee more than what he could couple days ago review of his culture shows that the blood cultures were negative. I did review the note and it states that he did want to leave against medical advice during his last admission and was not given any antibiotics. Had a discussion with him today. Informed him that he should be admitted for IV antibiotics. We discussed the risks and benefits this. We also discussed the risks and benefits of going home to include worsening infection, and worsening systemic infection, the loss of his left leg or even . He expressed understanding of this. Even after this discussion he does not want to be admitted to the hospital. Patient was alert oriented x3. GCS of 15. My opinion has capacity to make decisions. I will prescribe him doxycycline. He is given 1st dose here in the emergency department. He was given return precautions. He expressed understanding and agreement. Discharge Plan Departure Patient Disposition: Home Clinical Impression: Cellulitis Instructions: DI for Cellulitis -- Adult Activity Restrictions/Additional Instructions: Despite our discussion and my recommendation for admission to the hospital you of opted to be discharged home. Please take the antibiotics as directed. They were sent to [facility]. If you start to have worsening symptoms, fevers were start feeling poorly please return to the emergency department for further evaluation. Prescriptions: New doxycycline hyclate 100 mg tablet 100 mg PO BID 10 Days Qty: 20 0RF No Action levetiracetam [Keppra] 500 mg tablet 500 mg PO Q12H Qty: 30 0RF
[2021-11-04] MEDS: DOXYCYCLINE HYCLATE 100 MG TABLET PO (22:12)
[2021-11-04 22:34] VITALS: PULSE 102; RESP 16; O2SAT 99
== END 2021-11-04 22:34 | disposition home or self-care (01) ==
PROVIDERS: Emergency Provider Emergency Medicine
DX: L03.116 Cellulitis of left lower limb (principal)
CPT/HCPCS: 99283